=== PATIENT | female | born 1960 | race Caucasian/White ===

== ENCOUNTER 2022-04-10 00:15 | Emergency (ER) | payer OTHER, SELFPAY ==
[2022-04-10] VITALS (8 sets, daily range): BP systolic 120–137; BP diastolic 61–83; PULSE 80–96; RESP 16; TEMP 36.4; O2SAT 94–98; BMI 30.2
[2022-04-10 00:50] LABS: Add Manual Diff / Slide Review NO; Basophils Absolute Auto 0 /uL (0-100); Basophils Percent Auto 0.4 % (0-2); Eosinophils Absolute Auto 200 /uL (0-450); Eosinophils Percent Auto 1.7 % (2-4); Hematocrit 42.9 % (36-46); Hemoglobin 14.5 g/dL (12.0-16.0); Lymphocytes Absolute Auto 1500 /uL (1100-4500); Lymphocytes Percent Auto 13.6 % (25-40); Mean Corpuscular HGB Conc 33.7 % (30-36); Monocytes Absolute Auto 700 /uL (0-900); Monocytes Percent Auto 6.9 % (3-14); Neutrophils Absolute Auto 8300 /uL (1500-7000); Neutrophils Percent Auto 77.4 % (50-75); Platelet Count 341 X10^3/uL (150-400); Red Blood Cell Count 4.82 X10^6/uL (4.0-5.2); Red Cell Distribution Width 13.6 % (11.6-14.8); White Blood Cell Count 10.7 X10^3/uL (4.5-11.0)
[2022-04-10] MEDS: ONDANSETRON 4 MG/2 ML INJ IV (00:51)
[2022-04-10 00:57] LABS: Alanine Aminotransferase 24 IU/L (<35); Albumin 4.6 g/dL (3.5-5.0); Albumin Globulin Ratio 1.6 (1.0-2.8); Alkaline Phosphatase 67 U/L (38-126); Aspartate Aminotransferase 26 IU/L (14-36); BUN Creatinine Ratio 13.6 (6-22); Bilirubin Total 0.7 mg/dL (0.2-1.3); Blood Urea Nitrogen 11 mg/dL (7-17); Calcium 9.5 mg/dL (8.4-10.2); Carbon Dioxide 24 mmol/L (22-32); Chloride 100 mmol/L (98-107); Estimated Glomerular Filt Rate > 60 mL/min (>60); Globulin 2.9 g/dL (1.7-4.1); Glucose 134 mg/dL (70-100); HEMOLYSIS < 15 (0-50); Lipase 158 U/L (23-300); Potassium 3.5 mmol/L (3.4-5.1); Sodium 137 mmol/L (137-145); Total Protein 7.5 g/dL (6.3-8.2)
--- NOTE | 2022-04-10 01:21 | ED.ABDPAIN ---
HPI - Abdominal Pain General Chief Complaint: Abdominal Pain Stated Complaint: ABD PAIN, N/V Time Seen by Provider: 04/10/22 00:23 Source: patient Mode of arrival: Ambulatory History of Present Illness HPI narrative: Patient is a 61-year-old female with noncontributory medical history presenting today with abdominal discomfort and bloating, nausea and vomiting. She says she had episode like this 2 days ago she said it resolved but now is back. Epigastric pain it was previously radiating her chest now it is not radiating. She is not had any fever chills. Today she felt very nauseous. She denies any flank pain no fever. He has cramping on upper abdomen no significant diarrhea no changes in bowel habits. She is retired ER nurse now teaches. Related Data Home Medications Medication Instructions Recorded Confirmed mirtazapine 15 mg disintegrating 3.75 mg PO HS ##0 01/10/16 04/10/22 tablet Previous Rx's Medication Instructions Recorded ondansetron 4 mg disintegrating 4 mg PO Q8H PRN nausea and 04/10/22 tablet vomiting #10 tabs Allergies Allergy/AdvReac Type Severity Reaction Status Date / Time prochlorperazine Allergy Unknown Anxiety Verified 04/10/22 00:27 [From COMPAZINE] Review of Systems Review of Systems ROS Unobtainable: All systems reviewed & are unremarkable except as noted in HPI and below Patient History Social History Smoking Status: Never smoker Smoking Status: Never smoker alcohol intake frequency: a few times a week Alcohol type: other Substance Use Type: does not use Exam Initial Vital Signs Initial Vital Signs: Vital Signs Temperature 97.5 F L 04/10/22 00:22 Pulse Rate 96 H 04/10/22 00:22 Respiratory Rate 16 04/10/22 00:22 Blood Pressure 120/83 04/10/22 00:22 Pulse Oximetry 97 04/10/22 00:22 Oxygen Delivery Method 04/10/22 00:22 GENERAL: Alert pleasant 61-year-old female and in no acute distress. HEENT: Head atraumatic,EOMI, pupils reactive, face symmetric, moist mucous membranes CARDIOVASCULAR: Regular rate and rhythm without murmurs, rubs or gallops. RESPIRATORY: Breath sounds equal bilaterally, no wheezes rales or rhonchi. ABDOMEN: Soft, nontender. Normoactive bowel sounds all 4 quadrants. Mild epigastric pain negative Sewell sign EXTREMITIES: Normal range of motion, no clubbing or edema. Neurovascularly intact NEUROLOGICAL: Alert and oriented x4.Normal gait and speech. SKIN: Warm, dry, no laceration, no petechiae, no rashes or lesions. Course Orders Ordered: ED Orders 04/10/22 00:29 EKG-12 Lead Stat 04/10/22 00:37 Complete Blood Count AUTO DIFF Stat Comprehensive Metabolic Panel Stat Lipase Stat Troponin & CK Cardiac Panel Stat 04/10/22 00:43 Urine Microscopic Stat 04/10/22 01:30 US abdomen limited Stat Ondansetron HCl (Ondansetron 4 Mg/2 Ml Inj) 4 mg IV NOW PRN PRN Reason: Nausea And Vomiting Last Admin: 04/10/22 00:51 Dose: 4 mg Documented By: LORENZA Discontinued Medications Al Hydrox/Mg Hydrox/Simethicone 20 ml/ Lidocaine HCl 15 ml 0 ml PO NOW ONE Stop: 04/10/22 03:06 Last Admin: 04/10/22 03:24 Dose: 35 ml Documented By: LORENZA Sodium Chloride (Normal Saline 0.9%) 1,000 mls @ 1,000 mls/hr IV BOLUS ONE Stop: 04/10/22 02:29 Last Infusion: 04/10/22 02:38 Dose: 0 mls/hr Documented By: Admin: 04/10/22 01:37 Dose: 1,000 mls/hr Documented By: LORENZA Ketorolac Tromethamine (Ketorolac 30 Mg/Ml Vial) 15 mg IV NOW ONE Stop: 04/10/22 01:31 Last Admin: 04/10/22 01:36 Dose: 15 mg Documented By: LORENZA Vital Signs Vital signs: Vital Signs - 8 hr 04/10/22 00:22 04/10/22 00:38 04/10/22 01:00 Temperature 97.5 F L Pulse Rate 96 H 91 H Respiratory Rate 16 Blood Pressure 120/83 135/71 Pulse Oximetry 97 98 Oxygen Delivery Method Room Air 04/10/22 01:00 04/10/22 01:30 04/10/22 01:30 Temperature Pulse Rate 80 88 Respiratory Rate Blood Pressure 137/74 Pulse Oximetry 96 94 Oxygen Delivery Method Room Air Room Air 04/10/22 02:00 04/10/22 02:00 04/10/22 02:30 Temperature Pulse Rate 90 Respiratory Rate Blood Pressure 132/76 124/69 Pulse Oximetry 94 Oxygen Delivery Method Room Air 04/10/22 02:30 04/10/22 03:00 04/10/22 03:00 Temperature Pulse Rate 84 Respiratory Rate Blood Pressure 136/61 Pulse Oximetry 96 96 Oxygen Delivery Method Room Air Room Air 04/10/22 03:30 04/10/22 03:30 Temperature Pulse Rate 83 Respiratory Rate Blood Pressure 129/70 Pulse Oximetry 97 Oxygen Delivery Method Room Air MDM - Abdominal Pain Lab Data 04/10/22 00:37 04/10/22 00:37 Labs: Lab Results 04/10/22 04/10/22 04/10/22 Range/Units 00:37 00:37 00:37 WBC 10.7 (4.5-11.0) X10^3/uL RBC 4.82 (4.0-5.2) X10^6/uL Hgb 14.5 (12.0-16.0) g/dL Hct 42.9 (36-46) % MCV 89.0 (80-100) fL MCH 30.0 (26-34) PG MCHC 33.7 (30-36) % RDW 13.6 (11.6-14.8) % Plt Count 341 (150-400) X10^3/uL Neut % (Auto) 77.4 H (50-75) % Lymph % (Auto) 13.6 L (25-40) % [place] % (Auto) 6.9 (3-14) % Eos % (Auto) 1.7 L (2-4) % Baso % (Auto) 0.4 (0-2) % Neut # (Auto) 8300 H (2634-6777) /uL Lymph # (Auto) 1500 (4716-5176) /uL [place] # (Auto) 700 (0-900) /uL Eos # (Auto) 200 (0-450) /uL Baso # (Auto) 0 (0-100) /uL Sodium 137 (137-145) mmol/L Potassium 3.5 (3.4-5.1) mmol/L Chloride 100 (98-107) mmol/L Carbon Dioxide 24 (22-32) mmol/L BUN 11 (7-17) mg/dL Creatinine 0.81 (0.52-1.04) mg/dL Estimated GFR > 60 (>60) mL/min BUN/Creatinine Ratio 13.6 (6-22) Glucose 134 H (70-100) mg/dL Calcium 9.5 (8.4-10.2) mg/dL Total Bilirubin 0.7 (0.2-1.3) mg/dL AST 26 (14-36) IU/L ALT 24 (<35) IU/L Alkaline Phosphatase 67 (38-126) U/L Total Creatine Kinase 95 (30-135) U/L CK-MB (CK-2) TNP CK-MB (CK-2) Rel Index TNP Troponin I < 0.012 (0.01-0.034) ng/mL Total Protein 7.5 (6.3-8.2) g/dL Albumin 4.6 (3.5-5.0) g/dL Globulin 2.9 (1.7-4.1) g/dL Albumin/Globulin Ratio 1.6 (1.0-2.8) Lipase 158 (23-300) U/L Urine RBC (0-5/HPF) Urine WBC (0-5/HPF) Ur Squamous Epith Cells (0-5/HPF) Urine Bacteria (None) Ur Culture Indicated? 04/10/22 Range/Units 00:43 WBC (4.5-11.0) X10^3/uL RBC (4.0-5.2) X10^6/uL Hgb (12.0-16.0) g/dL Hct (36-46) % MCV (80-100) fL MCH (26-34) PG MCHC (30-36) % RDW (11.6-14.8) % Plt Count (150-400) X10^3/uL Neut % (Auto) (50-75) % Lymph % (Auto) (25-40) % [place] % (Auto) (3-14) % Eos % (Auto) (2-4) % Baso % (Auto) (0-2) % Neut # (Auto) (2689-7119) /uL Lymph # (Auto) (6392-1029) /uL [place] # (Auto) (0-900) /uL Eos # (Auto) (0-450) /uL Baso # (Auto) (0-100) /uL Sodium (137-145) mmol/L Potassium (3.4-5.1) mmol/L Chloride (98-107) mmol/L Carbon Dioxide (22-32) mmol/L BUN (7-17) mg/dL Creatinine (0.52-1.04) mg/dL Estimated GFR (>60) mL/min BUN/Creatinine Ratio (6-22) Glucose (70-100) mg/dL Calcium (8.4-10.2) mg/dL Total Bilirubin (0.2-1.3) mg/dL AST (14-36) IU/L ALT (<35) IU/L Alkaline Phosphatase (38-126) U/L Total Creatine Kinase (30-135) U/L CK-MB (CK-2) CK-MB (CK-2) Rel Index Troponin I (0.01-0.034) ng/mL Total Protein (6.3-8.2) g/dL Albumin (3.5-5.0) g/dL Globulin (1.7-4.1) g/dL Albumin/Globulin Ratio (1.0-2.8) Lipase (23-300) U/L Urine RBC 0-1/hpf (0-5/HPF) Urine WBC 0-1/hpf (0-5/HPF) Ur Squamous Epith Cells 1-5 /hpf (0-5/HPF) Urine Bacteria None seen (None) Ur Culture Indicated? Cult not indicated Point of care testing: Urine Dip Bedside Urine Glucose Negative Bedside Urine Bilirubin - Negative Bedside Urine Ketone +++ 80 Urine Specific [place] 1.010 Bedside Urine Occult Blood - Negative Bedside Urine pH 8.0 Bedside Urine Protein +/- 15 Bedside Urine Urobilinogen - Negative Bedside Urine Nitrite - Negative Bedside Urine Leukocytes - Negative Esterase Imaging Data US - abdomen: Radiologist's Impression: Preliminary report: Incidental hepatic cyst left lobe normal gallbladder trace pelviectasis right kidney ECG Data Interpretation: Normal sinus rhythm rate 81 GA interval 132 QRS [address] changes no T-wave inversions no priors to compare MDM Narrative Medical decision making narrative: Patient having some nausea vomiting episodes with some epigastric pain ongoing for about 2 days. Mild right upper quadrant pain. No leukocytosis no elevated bilirubin liver enzymes or lipase. No significant acute kidney injury or electrolyte abnormality is found. Ultrasound shows a hepatic cyst no cholecystitis or cholelithiasis. She is feeling better after fluids Toradol Zofran and GI cocktail. Troponin and EKG do not show any abnormality. Suspicion for acute coronary syndrome is low. Abdomen is fairly soft and do not see need for further evaluation with CT. Differential diagnosis: Acute coronary syndrome, gastroenteritis, cholecystitis/cholelithiasis, nephrolithiasis, bowel obstruction Discharge Plan Departure Patient Disposition: Home Clinical Impression: Gastroenteritis, Benign liver cyst Instructions: DI for Viral Gastroenteritis -- Adult Activity Restrictions/Additional Instructions: *You have been diagnosed with gastroenteritis *What to do: At this time I hope you feel better. Increase fluids as tolerated recommend Gatorade or Gatorade product. You were found to have a benign liver cyst on her ultrasound today and blood work was overall reassuring. *Continue to take medications as directed Zofran 4 mg every 8 hours if needed for nausea or vomiting *Follow up with your primary care provider in 2-3 days or call [phone] *Return to ER if you should have persistent vomiting increasing abdominal pain fevers or any new, worsening or concerning symptoms Prescriptions: New ondansetron 4 mg tablet,disintegrating 4 mg PO Q8H PRN (Reason: nausea and vomiting) Qty: 10 0RF No Action mirtazapine 15 MG tablet,disintegrating 3.75 mg PO HS Qty: 0 Stand Alone Forms: Patient Portal/API
[2022-04-10 01:27] LABS: RBC Urine 0-1/HPF (0-5/HPF)
[2022-04-10 01:28] LABS: Bacteria Urine None Seen; Culture Indicated Urine Cult Not Indicated; Squamous Epithelial Cell Urine 1-5 /HPF (0-5/HPF); WBC Urine 0-1/HPF (0-5/HPF)
--- NOTE | 2022-04-10 01:30 | DI.US.S_ITS ---
PROCEDURE: US ABDOMEN LIMITED INDICATIONS: RIGHT UPPER QUADRANT PAIN POSTPRANDIAL. NAUSEA/VOMITING. TECHNIQUE: Real-time scanning was performed of the abdominal and retroperitoneal organs, with image documentation. COMPARISON: None. FINDINGS: Liver: Liver is normal in size and homogeneous in echotexture. Incidental note of 6 mm hepatic cyst in the left lobe. Gallbladder: Gallbladder is minimally distended. No wall thickening. No gallstones. No pericholecystic fluid. No abnormal sonographic Sewell's. Biliary ducts: Intrahepatic bile ducts are non-dilated. Extrahepatic bile duct caliber measures 4 mm. Normal is 6-7 mm or less in diameter, or 10 mm or less post-cholecystectomy. Pancreas: Visualized portions of the pancreas are sonographically normal. Miscellaneous: No free abdominal fluid. Suggestion of trace right renal pelviectasis. IMPRESSION: Abdomen without acute sonographic abnormalities. Incidental 6 mm left hepatic lobe cyst. Normal sonographic appearance of the gallbladder. Trace pelviectasis of the right kidney. No significant discrepancy with the shift leader radiology preliminary report. Dictated by: Doug Lange M.D. on 04/10/2022 at 7:06 Approved by: Doug Lange M.D. on 04/10/2022 at 7:08
[2022-04-10] MEDS: KETOROLAC 30 MG/ML VIAL 15 MG IV (01:36)
[2022-04-10] MEDS: SODIUM CHLORIDE 0.9% 1,000 ML 1000 ML IV (01:37)
[2022-04-10 03:22] LABS: Creatine Kinase 95 U/L (30-135)
[2022-04-10] MEDS: MAG HYDROX/ALUMINUM/SIMETH SUS 20 ML, LIDOCAINE VISCOUS 2% 15 ML PO (03:24)
[2022-04-10 03:35] LABS: Troponin I < 0.012 ng/mL (0.01-0.034)
[2022-04-10] MEDS: ONDANSETRON 4 MG ODT PREPACK 1 BOTTLE MISC (03:56)
== END 2022-04-10 04:04 | disposition home or self-care (01) ==
PROVIDERS: Emergency Provider Emergency Medicine
DX: K52.9 Noninfective gastroenteritis and colitis, unspecified (principal); K76.89 Other specified diseases of liver
CPT/HCPCS: 36415; 76705; 80053; 81003; 81015; 82550; 83690; 84484; 85025; 93005; 96361; 96374; 96375; 99284; J1885; J2405